=== PATIENT | female | born 1980 | race Caucasian/White ===

== ENCOUNTER 2017-12-30 12:54 | Emergency (ER) | payer MEDICAID ==
--- NOTE | 2017-12-30 14:09 | EDM.PDOC ---
ED HPI GENERAL MEDICAL PROBLEM - General Chief Complaint: Skin Complaint Stated Complaint: ALLERGIC REACTION/INFECTION?? Time Seen by Provider: 12/30/17 14:03 Source of Information: Reports: Patient History Limitations: Reports: No Limitations - History of Present Illness INITIAL COMMENTS - FREE TEXT/NARRATIVE: Pt used CLEMENTS on . Began noticing increased redness and swelling to left labia yesterday. No fever. Does have history of genital herpes. No new sexual partner. Onset: Gradual Onset Date: 12/29/17 Location: Reports: Pelvis Quality: Reports: Burning Severity: Mild Improves with: Reports: None Worsens with: Reports: None Associated Symptoms: Reports: No Other Symptoms Groin Pain Score (Numeric/FACES): 5 - Related Data Allergies Allergy/AdvReac Type Severity Reaction Status Date / Time No Known Allergies Allergy Verified 12/30/17 13:47 Home Meds: Home Meds Acyclovir 200 mg PO DAILY 12/30/17 [History] Desvenlafaxine [Pristiq] 100 mg PO DAILY 12/30/17 [History] Past Medical History W[employer] History: Reports: Musculoskeletal History: Reports: Fracture Psychiatric History: Reports: Depression - Infectious Disease History Infectious Disease History: Reports: Herpes - Past Surgical History GI Surgical History: Reports: Appendectomy Social & Family History - Tobacco Use Smoking Status *Q: Never Smoker - Caffeine Use Caffeine Use: Reports: Coffee - Recreational Drug Use Recreational Drug Use: No ED ROS GENERAL - Review of Systems Review Of Systems: See Below Constitutional: Reports: No Symptoms HEENT: Reports: No Symptoms Respiratory: Reports: No Symptoms Cardiovascular: Reports: No Symptoms Skin: Reports: Other (with redness and swelling to left labia yesterday) ED EXAM, SKIN/RASH Exam: See Below Exam Limited By: No Limitations General Appearance: Alert, WD/WN, No Apparent Distress Neck: Normal Inspection, Supple, Non-Tender, Full Range of Motion Respiratory/Chest: No Respiratory Distress, Lungs Clear, Normal Breath Sounds, No Accessory Muscle Use, Chest Non-Tender Cardiovascular: Normal Peripheral Pulses, Regular Rate, Rhythm, No Edema, No Gallop, No JVD, No Murmur, No Rub GI/Abdominal: Normal Bowel Sounds, Soft, Non-Tender, No Organomegaly, No Distention, No Abnormal Bruit, No Mass (Female) Exam: Vaginal Lesions (left labia with redness, small papule noted. Tender on exam. No warmth. Mildly swollen on exam.) Extremities: Normal Inspection, Normal Range of Motion, Non-Tender, No Pedal Edema, Normal Capillary Refill Neurological: Alert, Oriented, CN II-XII Intact, Normal Cognition, Normal Gait, Normal Reflexes, No Motor/Sensory Deficits Course - Vital Signs Last Recorded V/S: Last Vital Signs Temp 98.6 F 12/30/17 13:45 Pulse 80 12/30/17 13:45 Resp 16 12/30/17 13:45 BP 127/82 12/30/17 13:45 Pulse Ox 100 12/30/17 13:45 Departure - Departure Time of Disposition: 14:06 Disposition: Home, Self-Care 01 Condition: Good Clinical Impression: Folliculitis - Discharge Information *PRESCRIPTION DRUG MONITORING PROGRAM REVIEWED*: Not Applicable *COPY OF PRESCRIPTION DRUG MONITORING REPORT IN PATIENT ESTELLA: Not Applicable Instructions: Folliculitis Referrals: PCP,None [Primary Care Provider] - Additional Instructions: RX for Cephalexin 500mg three times a day for 7 days. To shower with Dial or antibacterial soap daily x 1 week. Tips for home waxing given. - Problem List & Annotations (1) Folliculitis SNOMED Code(s): 09075347 Code(s): L73.9 - FOLLICULAR DISORDER, UNSPECIFIED Status: Acute Priority : Low Current Visit: Yes
== END 2017-12-30 14:21 | disposition home or self-care (01) ==
LOC: JP.ED 12:54
DX: L73.9 Follicular disorder, unspecified (principal); Z79.899 Other long term (current) drug therapy
CPT/HCPCS: 99283